=== PATIENT | female | born 1975 | race Caucasian/White ===

== ENCOUNTER 2017-06-24 08:10 | Emergency (ER) | payer MEDICAID ==
[2017-06-24] MEDS: DIAZEPAM 5 MG TAB PO (10:15)
[2017-06-24] MEDS: KETOROLAC 60 MG INJ IM (10:16)
== END 2017-06-24 11:35 | disposition home or self-care (01) ==
LOC: FTE 08:10
DX: M54.2 Cervicalgia (principal)
CPT/HCPCS: 96372; 99284-25; J1885

== ENCOUNTER 2018-02-11 15:11 | Emergency (ER) | payer SELFPAY, MEDICAID | END 2018-02-11 16:44 | disposition left against medical advice (07) | LOC: E/R 15:11 | DX: Z53.21 Procedure and treatment not carried out due to patient leaving prior to being seen by health care provider (principal) ==

== ENCOUNTER 2018-10-24 16:41 | Emergency (ER) | payer MEDICAID, OTHER ==
[2018-10-24 17:22] LABS: URINE BLOOD (Dip) POC 1+ (NEGATIVE); URINE GLUCOSE (Dip) POC Negative (NEGATIVE); URINE KETONES (Dip) POC Negative (NEGATIVE); URINE LEUKOCYTE EST (Dip) POC Negative (NEGATIVE); URINE NITRITE (Dip) POC Negative (NEGATIVE); URINE TOTAL PROTEIN POC Negative (NEGATIVE)
[2018-10-24 17:22] LABS: URINE PH (Dip) POC 6.5 (5.0-8.5)
== END 2018-10-24 17:44 | disposition home or self-care (01) ==
LOC: FTE 16:41
DX: M54.5 Low back pain (principal)
CPT/HCPCS: 81003; 81025; 99282